=== PATIENT | female | born 1970 | race American Indian/Alaskan Native ===

== ENCOUNTER 2016-06-30 06:51 | Emergency (ER) | payer OTHER ==
[2016-06-30 08:28] LABS: Basophils % (Auto) 0.9 % (0.0-1.8); Eosinophils % (Auto) 2.2 % (0.0-4.3); Hematocrit 38.5 % (30.3-42.9); Hemoglobin 12.6 gm/dl (10.1-14.3); Mean Corpuscular HGB Conc 33 % (30-34); Mean Corpuscular Hemoglobin 28 pg (28-32); Mean Corpuscular Volume 86 fl (79-97); Platelet Count 293 K/mm3 (140-440); Red Blood Count 4.46 M/mm3 (3.65-5.03); Red Cell Distribution Width 14.7 % (13.2-15.2); White Blood Count 7.4 K/mm3 (4.5-11.0)
[2016-06-30 08:43] LABS: Anion Gap 16 mmol/L; Blood Urea Nitrogen 9 mg/dL (7-17); Calcium 9.1 mg/dL (8.4-10.2); Carbon Dioxide 24 mmol/L (22-30); Chloride 102.7 mmol/L (98-107); Glucose 87 mg/dL (65-100); Potassium 4.4 mmol/L (3.6-5.0); Sodium 138 mmol/L (137-145)
[2016-06-30 10:45] LABS: Bilirubin,Urine NEG (Negative); Blood,Urine SM (Negative); Ketones,Urine NEG (Negative); Leukocyte Esterase,Urine LG (Negative); Nitrite,Urine NEG (Negative); Urobilinogen,Urine < 2.0 mg/dL (<2.0)
[2016-06-30 11:02] LABS: Bacteria,Urine 3+ /HPF (Negative)
[2016-06-30 18:30] VITALS: BP 151/97
[2016-06-30] MEDS ORDERED: TORADOL IM ONE (19:59)
--- NOTE | 2016-06-30 20:22 | Emergency Department Report ---
ED Chest Pain HPI - General Chief Complaint: Chest Pain Stated Complaint: PAINFUL URINATION/CHEST PAIN Time Seen by Provider: 06/30/16 20:15 Source: patient Mode of arrival: Ambulatory Limitations: No Limitations - History of Present Illness Initial Comments: This is a pleasant 46-year-old female who reports having some dysuria symptoms since Sunday. She has been trying to drink lots of fluids at home. Because she is continuing to have increasing burning and urgency sensation. She had UTI times once in her life. She states that symptoms started the day after having sexual relations with her . She indicates that that she is feeling some discomfort as well in her right back region. She is not having fever. She is tolerating by mouth okay. She's not endorsing any diarrhea. She otherwise does not have any anterior abdominal pain that she is complaining of. She did not to the triage nurse that she occasionally gets chest wall discomforts. She attributes this to activities though and is not concerned about them and that is not the reason she is here today. Patient does report having upper respiratory infection 2 weeks ago and losing her voice at that time. She states her voice is still a little bit raspy since then. She's been told that antibiotics may help this and was on an antibiotic actually for the past week from her primary physician. Amoxicillin but just 500 milligrams daily. No other treatments were initiated for her laryngitis. Severity scale (0 -10): 7 - Related Data Home Medications Medication Instructions Recorded Confirmed Last Taken Atenolol [Tenormin] 25 mg PO BID 06/30/16 06/30/16 Unknown LORazepam [Ativan] 0.25 mg PO 2XW 06/30/16 06/30/16 Unknown Linaclotide [Linzess] 290 mcg PO DAILY PRN 06/30/16 06/30/16 Unknown Omeprazole 40 mg PO DAILY 06/30/16 06/30/16 Unknown Previous Rx's Medication Instructions Recorded Last Taken Type Ciprofloxacin HCl [Ciprofloxacin 500 mg PO Q12HR #14 tab 06/30/16 Unknown Rx TAB] Phenazopyridine [Pyridium] 200 mg PO BID #6 tab 06/30/16 Unknown Rx predniSONE [Deltasone] 40 mg PO QDAY #10 tab 06/30/16 Unknown Rx Allergies Allergy/AdvReac Type Severity Reaction Status Date / Time acetaminophen [From Percocet] AdvReac Nausea Verified 06/30/16 07:34 codeine AdvReac Itching Verified 06/30/16 07:34 niacin AdvReac Unknown Verified 06/30/16 07:34 oxycodone HCl [From Percocet] AdvReac Nausea Verified 06/30/16 07:34 BUD score - Bud Score Age > 65: (0) No Aspirin use within the Past 7 Days: (0) No 3 or more CAD Risk Factors: (0) No 2 or more Angina events in past 24 hrs: (0) No Known CAD with more than 50% Stenosis: (0) No Elevated Cardiac Markers: (0) No ST Deviation Greater than 0.5mm: (0) No BUD Score: 0 ED Review of Systems ROS: Stated complaint: PAINFUL URINATION/CHEST PAIN Other details as noted in HPI Comment: All other systems reviewed and negative Constitutional: denies: chills, fever Eyes: denies: eye pain, eye discharge, vision change ENT: other (voice changes from mild sore throat.). denies: ear pain, throat pain Respiratory: denies: cough, shortness of breath, wheezing Cardiovascular: chest pain. denies: palpitations Endocrine: no symptoms reported Gastrointestinal: denies: abdominal pain, nausea, diarrhea Genitourinary: urgency, dysuria, frequency. denies: discharge Musculoskeletal: back pain. denies: joint swelling, arthralgia Skin: denies: rash, lesions Neurological: denies: headache, weakness, paresthesias Psychiatric: denies: anxiety, depression Hematological/Lymphatic: denies: easy bleeding, easy bruising ED Past Medical Hx - Past Medical History Previous Medical History?: Yes Additional medical history: Anomalous left upper pulmonary vein drainage, sees [facility] - Surgical History Past Surgical History?: Yes Hx Cholecystectomy: Yes Additional Surgical History: partial hysterectomy. hernia repair - Social History Smoking Status: Never Smoker Substance Use Type: Alcohol - Medications Home Medications: Home Medications Medication Instructions Recorded Confirmed Last Taken Type Atenolol [Tenormin] 25 mg PO BID 06/30/16 06/30/16 Unknown History Ciprofloxacin HCl [Ciprofloxacin 500 mg PO Q12HR #14 tab 06/30/16 Unknown Rx TAB] LORazepam [Ativan] 0.25 mg PO 2XW 06/30/16 06/30/16 Unknown History Linaclotide [Linzess] 290 mcg PO DAILY PRN 06/30/16 06/30/16 Unknown History Omeprazole 40 mg PO DAILY 06/30/16 06/30/16 Unknown History Phenazopyridine [Pyridium] 200 mg PO BID #6 tab 06/30/16 Unknown Rx predniSONE [Deltasone] 40 mg PO QDAY #10 tab 06/30/16 Unknown Rx ED Physical Exam - General Limitations: No Limitations General appearance: alert, in no apparent distress - Head Head exam: Present: atraumatic, normocephalic - Eye Eye exam: Present: normal appearance, EOMI. Absent: scleral icterus - ENT ENT exam: Present: normal exam, normal orophraynx, mucous membranes moist - Neck Neck exam: Present: normal inspection, full ROM. Absent: tenderness, meningismus, lymphadenopathy, thyromegaly - Respiratory Respiratory exam: Present: normal lung sounds bilaterally. Absent: respiratory distress, rales, rhonchi - Cardiovascular Cardiovascular Exam: Present: regular rate, normal rhythm. Absent: systolic murmur, diastolic murmur, rubs, gallop - GI/Abdominal GI/Abdominal exam: Present: soft, normal bowel sounds. Absent: tenderness, guarding - Extremities Exam Extremities exam: Present: normal inspection. Absent: tenderness, pedal edema, calf tenderness - Back Exam Back exam: Present: normal inspection, full ROM, CVA tenderness (L). Absent: CVA tenderness (R), muscle spasm - Neurological Exam Neurological exam: Present: alert, oriented X3, normal gait - Psychiatric Psychiatric exam: Present: normal affect, normal mood - Skin Skin exam: Present: warm, dry, intact, normal color. Absent: rash ED Course Vital Signs 06/30/16 06/30/16 06/30/16 07:28 18:21 18:29 Temperature 98.1 F Pulse Rate 65 67 Respiratory 16 16 16 Rate Blood Pressure 137/91 Blood Pressure 151/97 [Right] O2 Sat by Pulse 100 100 100 Oximetry 06/30/16 20:36 Temperature Pulse Rate Respiratory 18 Rate Blood Pressure Blood Pressure [Right] O2 Sat by Pulse Oximetry - Reevaluation(s) Reevaluation #1: 06/30/16 20:16 ECG at 07 19 with ventricular rate of 62 bpm with sinus rhythm. Does have a first degree block at 230 ms AK. Normal QRS and normal QT. Normal axis. Otherwise normal ECG. Reevaluation #2: 07/01/16 20:17 Patient is comfortable and well-appearing here. From a cardiac standpoint and had no concerns. Her ECG is unremarkable and her presentation is not consistent with ACS. chief complaint of dysuria., She does have evidence of UTI. With her left flank pain as well I will presume this is pyelonephritis. She does not have fever at this time. She is tolerating by mouth well I feel she is appropriate for outpatient treatment. Anterior abdomen is very soft. Labs related to the belly are benign as well. She demonstrates normal as well. In regards to laryngitis, I did suggest trialing steroids rather than the antibiotics. She is agreeable with this. I did also indicate the patient that while descending her urine off for culture may be difficult as it may be sterile due to the antibiotics that she has been on all week long. I will use a different antibiotic than amoxicillin. The bit of an odd prescription with the one a day amoxicillin and not sure why she was prescribed this. ED Medical Decision Making - Lab Data Result diagrams: 06/30/16 08:09 06/30/16 08:09 Critical care attestation.: If time is entered above; I have spent that time in minutes in the direct care of this critically ill patient, excluding procedure time. ED Disposition Clinical Impression: Pyelonephritis, Laryngitis Disposition: DISCHARGED TO HOME OR SELFCARE Is pt being admited?: No Does the pt Need Aspirin: No Condition: Stable Instructions: Laryngitis (ED), Acute Pyelonephritis (ED) Additional Instructions: Drink plenty of fluids. Consider cranberry tablets as well. Return if worsening. Prescriptions: Ciprofloxacin HCl [Ciprofloxacin TAB] 500 mg PO Q12HR #14 tab Phenazopyridine [Pyridium] 200 mg PO BID #6 tab predniSONE [Deltasone] 40 mg PO QDAY #10 tab Referrals: PRIMARY CARE, [Primary Care Provider] - 3-5 Days Time of Disposition: 20:36
[2016-06-30] MEDS ORDERED: PYRIDIUM PO ONE (20:35)
[2016-06-30] MEDS ORDERED: LEVAQUIN PO ONE (20:35)
== END 2016-06-30 20:45 | disposition home or self-care (01) ==
LOC: ED 06:51
DX: N12 Tubulo-interstitial nephritis, not specified as acute or chronic (principal); J04.0 Acute laryngitis; Z88.5 Allergy status to narcotic agent; Z88.8 Allergy status to other drugs, medicaments and biological substances; Z88.1 Allergy status to other antibiotic agents
CPT/HCPCS: 36415; 80048; 81001; 84484; 85025; 87076; 87086; 87186; 93005; 93010; 96372; 99284; J1885

== ENCOUNTER 2019-05-05 20:47 | Emergency (ER) | payer OTHER ==
--- NOTE | 2019-05-05 21:16 | Emergency Department Report ---
Blank Doc - Documentation Documentation: 49-year-old female that presents with CP and SOB. This initial assessment/diagnostic orders/clinical plan/treatment(s) is/are subject to change based on patient's health status, clinical progression and re- assessment by fellow clinical providers in the ED. Further treatment and workup at subsequent clinical providers discretion. Patient/guardians urged not to elope from the ED as their condition may be serious if not clinically assessed and managed. Initial orders include: 1- Patient sent to [facility] for further evaluation and treatment 2- EKG 3- CXR 4- labs
[2019-05-05 21:44] VITALS: BP 135/76
--- NOTE | 2019-05-05 22:27 | XRay Report ---
CHEST 2 VIEWS INDICATION / CLINICAL INFORMATION: Chest Pain. COMPARISON: 02/19/2011 FINDINGS: SUPPORT DEVICES: None. HEART / MEDIASTINUM: No significant abnormality. LUNGS / PLEURA: No significant pulmonary or pleural abnormality. .No pneumothorax. ADDITIONAL FINDINGS: No significant additional findings. IMPRESSION: 1. No acute findings. Signer Name: Herson Coleman MD Signed: 05/05/2019 10:22 PM Workstation Name: [id number]
[2019-05-05 23:12] LABS: Eosinophils # (Auto) 0.1 K/mm3 (0.0-0.4); Hematocrit 40.3 % (30.3-42.9); Lymphocytes # (Auto) 2.3 K/mm3 (1.2-5.4); Lymphocytes % (Auto) 51.7 % (13.4-35.0); Mean Corpuscular HGB Conc 32 % (30-34); Mean Corpuscular Volume 89 fl (79-97); Monocytes # (Auto) 0.3 K/mm3 (0.0-0.8); Monocytes % (Auto) 7.4 % (0.0-7.3); Platelet Count 281 K/mm3 (140-440); Red Blood Count 4.53 M/mm3 (3.65-5.03); Red Cell Distribution Width 14.5 % (13.2-15.2)
[2019-05-05 23:24] LABS: INR 0.89 (0.87-1.13)
[2019-05-05 23:25] LABS: Partial Thromboplastin Time 26.3 Sec. (24.2-36.6)
[2019-05-05 23:41] LABS: Alanine Aminotransferase 11 units/L (7-56); Albumin 4.7 g/dL (3.9-5); BUN/Creatinine Ratio 14; Blood Urea Nitrogen 10 mg/dL (7-17); Calcium 9.8 mg/dL (8.4-10.2); Hemolysis Index 7
--- NOTE | 2019-05-06 02:36 | Emergency Department Report ---
ED Chest Pain HPI - General Chief Complaint: Chest Pain Stated Complaint: CHEST PAIN Time Seen by Provider: 05/05/19 21:15 Source: patient Mode of arrival: Ambulatory Limitations: No Limitations - History of Present Illness Initial Comments: Patient is 49-year-old -[place] female with a history of cardiomyopathy, hypertension who presents to the ED with complaint of persistent left-sided chest pain that radiates to her left arm and left lateral neck for the last 1 month, but which got worse in the last 3 days. Patient states that she has not been able to sleep because of persistent left-sided chest pain that has been intermittent and severe. Patient states that she sees a vice president and portfolio manager for her chronic cardiac condition Dr. Liang who takes care of her cardiac issues. Patient states that the last time she had a cardiac catheterization was in 2012 and prior to that she has had a 3 cardiac catheterization procedures. Patient states that she is currently awaiting referral to [facility] for further evaluation of her cardiomyopathy condition. Patient states that in the last 24 hours her left-sided chest pain has been persistent and she describes it as sharp, pressure-like and tightness intermittently waxing and waning. Patient denies shortness of breath, dizziness, syncope, change in vision, seizures, bilateral upper and lower extremity weakness, numbness and tingling, nausea and vomiting, diarrhea, abdominal pain, diaphoresis or fever and chills or cough. MD Complaint: chest pain -: Gradual, month(s) (1) Onset: during rest Pain Location: substernal, left chest Pain Radiation: LUE, neck Severity: severe Severity scale (0 -10): 7 Quality: aching, sharp, pressure, squeezing Consistency: intermittent Improves With: nothing Worsens With: nothing re: denies: nausea, vomting, diaphoresis, dyspnea, sense of impending doom, other Other Symptoms: denies: cough, fever, syncope, rash, acid taste in mouth, leg swelling, palpitations, burping, other Treatments Prior to Arrival: aspirin Aspirin use within the Past 7 Days: (1) Yes - Related Data Home Medications Medication Instructions Recorded Confirmed Last Taken LORazepam [Ativan] 0.25 mg PO 2XW 06/30/16 06/30/16 Unknown Linaclotide [Linzess] 290 mcg PO DAILY PRN 06/30/16 06/30/16 Unknown Omeprazole 40 mg PO DAILY 06/30/16 06/30/16 Unknown atenoloL [Tenormin] 25 mg PO BID 06/30/16 06/30/16 Unknown Previous Rx's Medication Instructions Recorded Last Taken Type Ciprofloxacin HCl [Ciprofloxacin 500 mg PO Q12HR #14 tab 06/30/16 Unknown Rx TAB] Phenazopyridine [Pyridium] 200 mg PO BID #6 tab 06/30/16 Unknown Rx predniSONE [Deltasone] 40 mg PO QDAY #10 tab 06/30/16 Unknown Rx Ibuprofen [Motrin 600 MG tab] 600 mg PO Q8H #15 tablet 02/01/18 Unknown Rx Allergies Allergy/AdvReac Type Severity Reaction Status Date / Time amoxicillin [From Augmentin] Allergy Rash Verified 05/05/19 20:52 clavulanic acid Allergy Rash Verified 05/05/19 20:52 [From Augmentin] acetaminophen [From Percocet] AdvReac Nausea Verified 02/01/18 17:22 codeine AdvReac Itching Verified 02/01/18 17:22 niacin AdvReac Unknown Verified 02/01/18 17:22 oxycodone HCl [From Percocet] AdvReac Nausea Verified 02/01/18 17:22 Heart Score - HEART Score History: Moderately suspicious EKG: Normal Age: 45-65 Risk factors: > 3 risk factors or hx of atherosclerotic disease Troponin: < normal limit HEART Score: 4 - Critical Actions Critical Actions: 4-6 pts:12-16.6% risk of adverse cardiac event. Should be admitted ED Review of Systems ROS: Stated complaint: CHEST PAIN Other details as noted in HPI Constitutional: denies: chills, fever Eyes: denies: eye pain, eye discharge, vision change ENT: denies: ear pain, throat pain Respiratory: denies: cough, shortness of breath, wheezing Cardiovascular: chest pain (left sided chest pain). 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 hernia repair X4 - Social History Smoking Status: Never Smoker Substance Use Type: None - Medications Home Medications: Home Medications Medication Instructions Recorded Confirmed Last Taken Type Ciprofloxacin HCl [Ciprofloxacin 500 mg PO Q12HR #14 tab 06/30/16 Unknown Rx TAB] LORazepam [Ativan] 0.25 mg PO 2XW 06/30/16 06/30/16 Unknown History Linaclotide [Linzess] 290 mcg PO DAILY PRN 06/30/16 06/30/16 Unknown History Omeprazole 40 mg PO DAILY 06/30/16 06/30/16 Unknown History Phenazopyridine [Pyridium] 200 mg PO BID #6 tab 06/30/16 Unknown Rx atenoloL [Tenormin] 25 mg PO BID 06/30/16 06/30/16 Unknown History predniSONE [Deltasone] 40 mg PO QDAY #10 tab 06/30/16 Unknown Rx Ibuprofen [Motrin 600 MG tab] 600 mg PO Q8H #15 tablet 02/01/18 Unknown Rx ED Physical Exam - General Limitations: No Limitations General appearance: alert, in no apparent distress - Head Head exam: Present: atraumatic, normocephalic, normal inspection - Eye Eye exam: Present: normal appearance, PERRL, EOMI Pupils: Present: normal accommodation - ENT ENT exam: Present: normal exam, normal orophraynx, mucous membranes moist, TM's normal bilaterally, normal external ear exam - Neck Neck exam: Present: normal inspection, full ROM - Respiratory Respiratory exam: Present: normal lung sounds bilaterally. Absent: respiratory distress, wheezes, chest wall tenderness, prolonged expiratory - Cardiovascular Cardiovascular Exam: Present: regular rate, normal rhythm, normal heart sounds. Absent: systolic murmur, diastolic murmur, rubs, gallop - GI/Abdominal GI/Abdominal exam: Present: soft, normal bowel sounds. Absent: tenderness, hyperactive bowel sounds, hypoactive bowel sounds, organomegaly - Extremities Exam Extremities exam: Present: normal inspection, full ROM, normal capillary refill - Back Exam Back exam: Present: normal inspection, full ROM. Absent: tenderness, CVA tenderness (R), CVA tenderness (L), muscle spasm, paraspinal tenderness - Neurological Exam Neurological exam: Present: alert, oriented X3, CN II-XII intact, normal gait, reflexes normal - Psychiatric Psychiatric exam: Present: normal affect, normal mood - Skin Skin exam: Present: warm, dry, intact, normal color. Absent: rash ED Course Vital Signs 05/05/19 20:57 Temperature 98.0 F Pulse Rate 68 Respiratory 18 Rate Blood Pressure 135/76 O2 Sat by Pulse 100 Oximetry BUD score - Bud Score Age > 65: (0) No Aspirin use within the Past 7 Days: (1) Yes 3 or more CAD Risk Factors: (0) No 2 or more Angina events in past 24 hrs: (1) Yes Known CAD with more than 50% Stenosis: (1) Yes Elevated Cardiac Markers: (0) No ST Deviation Greater than 0.5mm: (0) No BUD Score: 3 ED Medical Decision Making - Lab Data Result diagrams: 05/05/19 22:35 05/05/19 22:35 - EKG Data EKG shows normal: sinus rhythm Rate: normal - EKG Data Interpretation: normal EKG 05/06/19 02:39 The EKG shows normal sinus rhythm with a ventricular rate of [address] or T wave abnormalities. - Radiology Data Radiology results: report reviewed, image reviewed Chest x-ray shows no acute cardiopulmonary abnormalities or pneumonitis, pleural effusion or pneumothorax. - Medical Decision Making This is 49-year-old female with extensive cardiac history characterized by chronic cardiomyopathy with up to 3 cardiac catheterization procedures before 2012 who presented to the ED with persistent left-sided chest pain that radiates to the left arm and neck. In the ED, patient is alert and oriented x3 and is not in distress. EKG shows normal sinus rhythm with ventricular rate of 69 bpm, and a chest x-ray shows no acute cardiopulmonary abnormalities or pneumonitis, pneumothorax or pleural effusion. Lab test results were reviewed and are all nonactionable including initial and repeat troponin. Patient has not had recent cardiac catheterization procedure since 2012. Patient states that chest pain madden s worsened in the last 3 days. Patient was offered admission to the hospital for further evaluation and possible catheterization but the patient declined the admission and stated that she would prefer to see her vice president and portfolio manager in the morning for further evaluation or possible catheterization in his office. Given the fact the patient declined admission, patient left the ED AGAINST MEDICAL ADVICE and was advised to ensure that she follows up with a vice president and portfolio manager for further evaluation. Patient was advised return to the ED immediately if symptoms get worse. - Differential Diagnosis CAD; PE; Pneumonia; Cardiomyopathy; angina pectoris; muscle strain Critical care attestation.: If time is entered above; I have spent that time in minutes in the direct care of this critically ill patient, excluding procedure time. ED Disposition Clinical Impression: Intermittent left-sided chest pain, Angina pectoris, unspecified Disposition: DC-07 LEFT AGAINST MED ADVICE Is pt being admited?: No Does the pt Need Aspirin: No Condition: Stable Instructions: Chest Pain (ED), Angina (ED) Referrals: PRIMARY CARE, [Primary Care Provider] - 3-5 Days Time of Disposition: 02:33 Print Language: FINNISH
== END 2019-05-06 03:20 | disposition left against medical advice (07) ==
LOC: ED 20:47
DX: I20.9 Angina pectoris, unspecified (principal); Z90.49 Acquired absence of other specified parts of digestive tract; Z90.710 Acquired absence of both cervix and uterus; Z79.899 Other long term (current) drug therapy; Z88.8 Allergy status to other drugs, medicaments and biological substances
CPT/HCPCS: 36415; 71046; 80053; 84484; 85025; 85610; 85730; 93005; 93010

== ENCOUNTER 2020-10-11 11:18 | Outpatient (CLI) | payer OTHER ==
--- NOTE | 2020-10-11 12:05 | Mammography Report ---
DIGITAL SCREENING MAMMOGRAM WITH CAD, 10/11/2020 CLINICAL INFORMATION / INDICATION: Routine screening mammography. SCREENING MAMMO Z12.31 TECHNIQUE: Digital bilateral 2D mammography was obtained in the craniocaudal and mediolateral obliqu e projections. This examination was interpreted with the benefit of Computer-Aided Detection analysis . COMPARISON: 01/12/2016 and 01/18/2015. FINDINGS: Breast Density: The breasts are heterogeneously dense, which may obscure small masses. No dominant mass, suspicious calcifications, or architectural distortion in either breast. No new abnormality is seen. IMPRESSION: No mammographic evidence of malignancy. Follow up recommendation: Routine yearly BI-RADS Category 1: Negative. A "normal" or negative report should not discourage follow up or biopsy of a clinically significant f inding. A written summary of these findings will be mailed to the patient. The patient will be entered into a mammography reporting system which will generate a reminder letter for the patient's next appointmen t at the appropriate interval. The [employer] recommends yearly mammograms starting at age 40 and continuing as l chidi as a woman is in good health. Breast MRI is recommended for women with an approximate 20-25% or greater lifetime risk of breast cancer, including women with a strong family history of breast or ova enrico cancer or who have been treated for Hodgkin's disease. Signer Name: Markel Frances MD Signed: 10/11/2020 12:00 PM Workstation Name: [id number]
== END 2020-10-11 11:19 | disposition home or self-care (01) ==
LOC: SPVWC 11:18
PROVIDERS: ATTEND Obstetrics & Gynecology
DX: Z12.31 Encounter for screening mammogram for malignant neoplasm of breast (principal); N64.89 Other specified disorders of breast
CPT/HCPCS: 77067